=== PATIENT | male | born 1960 | race Caucasian/White ===

== ENCOUNTER 2021-04-27 11:07 | Observation (INO) ==
[2021-04-27 11:35] LABS: ABS Eosinophils 0.1 10^3/ul (0-0.6); ABS Lymphocytes 1.1 10^3/ul (1.0-4.8); ABS Monocytes 0.6 10^3/ul (0-0.8); ABS Neutrophils 7.4 10^3/ul (1.5-7.7); Eosinophil % 0.9 %; Hematocrit 49 % (42-52); Hemoglobin 17.3 g/dL (14.0-18.0); Mean Corpuscular HGB Conc 35 g/dL (31-36); Mean Corpuscular Hemoglobin 36 pg (27-31); Mean Corpuscular Volume 101 fL (80-94); Mean Platelet Volume 9.6 fL (7.4-10.4); Platelet Count 183 10^3/uL (150-450); Red Blood Count 4.84 10^6 /uL (4.18-5.48); Red Cell Distribution Width 13 % (10-15); White Blood Count 9.2 10^3/uL (3.5-10.8)
[2021-04-27 11:53] LABS: INR 1.03 (0.86-1.15)
[2021-04-27 12:06] LABS: Albumin 4.4 g/dL (3.2-5.2); Albumin/Globulin Ratio 2.1 (1-3); Calcium 9.6 mg/dL (8.6-10.3); Globulin 2.1 g/dL (2-4); Potassium 4.2 mmol/L (3.5-5.0); Total Bilirubin 0.8 mg/dL (0.2-1.0); Total Protein 6.5 g/dL (6.4-8.9); eGFR CKD-EPI 88.3 (>60)
[2021-04-27 13:11] LABS: High Sensitivity Troponin 1 Hr 12 pg/mL (<20)
[2021-04-27] MEDS ORDERED: Al Hydrox/Mg Hydrox/Simet LIQ 30 ML UDC PO PRN (14:49)
[2021-04-27] MEDS ORDERED: Dextrose 50% Syringe 50 ml 25 GM/50 ML SYRINGE IV PUSH PRN (15:03)
[2021-04-27] MEDS: Enoxaparin 40 MG/0.4 ML SYR SUBCUT SCH (16:50)
[2021-04-27] MEDS: Nicotine PATCH 7 MG/24 HR PATCH TRANSDERM SCH (16:52)
[2021-04-27] MEDS: NS 0.9% 1000 ml BAG 1,000 ML IV SCH ×3 (17:56→19:33)
[2021-04-28] MEDS: NS 0.9% 1000 ml BAG 1,000 ML IV SCH (03:54)
[2021-04-28 05:45] LABS: Calcium 8.5 mg/dL (8.6-10.3); Potassium 4.2 mmol/L (3.5-5.0); eGFR CKD-EPI 102.5 (>60)
[2021-04-28 06:11] LABS: Folate 14.49 ng/mL (5.90-24.80)
[2021-04-28] MEDS ORDERED: Aminophylline 25 MG/ML VIAL ONE (08:55)
[2021-04-28] MEDS ORDERED: Regadenoson 0.4 MG/5 ML SYRINGE ONE (08:55)
[2021-04-28] MEDS ORDERED: Aspirin EC 81 mg TAB.EC (enteric coated) PO SCH (09:00)
[2021-04-28] MEDS: Nicotine PATCH 7 MG/24 HR PATCH TRANSDERM SCH (11:28)
[2021-04-28 11:51] LABS: HDL Cholesterol 24.6 mg/dL
[2021-04-28 14:13] LABS: Urine Appearance Clear; Urine Bilirubin Negative (Negative); Urine Blood Negative (Negative); Urine Color Yellow; Urine Glucose 3+(>=500 mg/dL) (Negative); Urine Ketones 1+ (Negative); Urine Nitrite Negative (Negative); Urine Protein 1+(30 mg/dL) (Negative); Urine Specific Gravity 1.017 (1.002-1.030); Urine Urobilinogen Negative (Negative)
[2021-04-28 14:42] LABS: Urine Bacteria Absent (Absent); Urine Red Blood Cell Trace(0-2/hpf) (Absent); Urine White Blood Cell Trace(0-5/hpf) (Absent)
[2021-04-28] MEDS: Enoxaparin 40 MG/0.4 ML SYR SUBCUT SCH (15:21)
[2021-04-28 15:30] VITALS: BP 134/75
== END 2021-04-28 17:00 | disposition home or self-care (01) ==
LOC: EDHOLD 11:07 → ED 11:07 → SUATTDRO 14:49 → MEDTELE 15:40
PROVIDERS: ADMIT Internal Medicine; ATTEND Student in an Organized Health Care Education/Training Program

== ENCOUNTER 2021-07-05 05:02 | Inpatient (IN) ==
[2021-07-05] MEDS ORDERED: Iohexol 350 (CONTRAST) 200 ML MDV IV ONE (05:03)
[2021-07-05] MEDS ORDERED: Amiodarone 360 MG IVPREMIX 360 MG/200 ML BAG IV ONE ×2 (05:22→11:05)
[2021-07-05] MEDS ORDERED: Propofol 10 mg/ml 100 ML BTL 100 ML IV ONE (05:23)
[2021-07-05 05:50] LABS: PCO2 Arterial 47 mmHg (35-45); PO2 Arterial 387 mmHg (80-100)
[2021-07-05] MEDS ORDERED: Magnesium Sulfate IV 1GM/100ML 1 GM/100 ML BAG IV ONE (06:07)
[2021-07-05 06:42] LABS: ABS Basophils 0.1 10^3/ul (0-0.2); ABS Lymphocytes 0.4 10^3/ul (1.0-4.8); ABS Monocytes 0.9 10^3/ul (0-0.8); ABS Neutrophils 14.5 10^3/ul (1.5-7.7); Eosinophil % 0.2 %; Hematocrit 55 % (42-52); Hemoglobin 18.7 g/dL (14.0-18.0); Lymphocyte % 2.8 %; Mean Corpuscular HGB Conc 34 g/dL (31-36); Mean Corpuscular Hemoglobin 36 pg (27-31); Mean Corpuscular Volume 105 fL (80-94); Mean Platelet Volume 9.4 fL (7.4-10.4); Platelet Count 178 10^3/uL (150-450); Red Blood Count 5.24 10^6 /uL (4.18-5.48); Red Cell Distribution Width 14 % (10-15); White Blood Count 15.9 10^3/uL (3.5-10.8)
[2021-07-05 06:42] LABS: Urine Appearance Clear; Urine Bilirubin Negative (Negative); Urine Blood 3+ (Negative); Urine Color Yellow; Urine Glucose 3+(>=500 mg/dL) (Negative); Urine Ketones Negative (Negative); Urine Nitrite Negative (Negative); Urine Protein 2+(100 mg/dL) (Negative); Urine Specific Gravity 1.016 (1.002-1.030); Urine Urobilinogen Negative (Negative)
[2021-07-05] MEDS ORDERED: Lactated Ringers 1000 ml BAG 1,000 ML IV ONE (06:46)
[2021-07-05 06:54] LABS: Urine Bacteria Absent (Absent); Urine Red Blood Cell 2+(6-10/hpf) (Absent); Urine Squamous Epithelial Cell Present (Absent); Urine White Blood Cell Trace(0-5/hpf) (Absent)
[2021-07-05 07:00] LABS: Activated Partial Thrombo Time 37.8 seconds (26.0-38.0)
[2021-07-05 07:05] LABS: High Sens Troponin Baseline 354 pg/mL (<20)
[2021-07-05] MEDS ORDERED: fentaNYL 100 mcg/2 ml 50 MCG/ML VIAL IV SLOW PU ONE (07:10)
[2021-07-05 07:17] LABS: ALT 251 U/L (7-52); Albumin 4.6 g/dL (3.2-5.2); Albumin/Globulin Ratio 1.9 (1-3); Alkaline Phosphatase 104 U/L (35-149); Blood Urea Nitrogen 24 mg/dL (6-24); CO2 Carbon Dioxide 26 mmol/L (22-32); Chloride 103 mmol/L (101-111); Globulin 2.4 g/dL (2-4); Glucose 204 mg/dL (70-100); Magnesium 2.4 mg/dL (1.9-2.7); Sodium 139 mmol/L (135-145); eGFR CKD-EPI 65.3 (>60)
[2021-07-05] MEDS ORDERED: Iohexol 350 (CONTRAST) 500 ML MDV IV ONE (07:32)
[2021-07-05 08:12] LABS: High Sensitivity Troponin 1 Hr 648 pg/mL (<20)
[2021-07-05] MEDS: fentaNYL INFUSION 50 mcg/mL VL 2,500 MCG/50 ML VIAL IV SCH (08:17)
[2021-07-05] MEDS ORDERED: Propofol 10 mg/ml 100 ML BTL 100 ML ONE (08:46)
[2021-07-05] MEDS ORDERED: Magnesium Sulfate 2 gm BAG 2 GM/50 ML BAG IVPB ONE (09:00)
[2021-07-05] MEDS ORDERED: nitroGLYCERIN DRIP 25,000 MCG/250 ML BTL ONE (09:51)
[2021-07-05] MEDS ORDERED: Heparin 2 UNITS/ML 1000 mls 3,000 ML IV ONE (09:51)
[2021-07-05] MEDS ORDERED: Heparin 1,000 UNIT/ML 10 ml (10,000 UNITS) CATHLAB/DIALYSIS ONE (09:51)
[2021-07-05] MEDS ORDERED: Midazolam 5 mg/5 ml VIAL 1 mg/ml 5 ml VIAL (5 mg) ONE (09:51)
[2021-07-05] MEDS ORDERED: niCARdipine 0.1MG/ML IVPREMIX 20 MG/200 ML BAG IV ONE (09:51)
[2021-07-05] MEDS ORDERED: fentaNYL 100 mcg/2 ml 50 MCG/ML VIAL ONE (09:51)
[2021-07-05] MEDS ORDERED: Lidocaine 1% MPF 5 ML VIAL ONE (09:52)
[2021-07-05] MEDS ORDERED: Heparin - STEMI 5,000 UNITS/ML 1 ml VIAL IV ONE (09:54)
[2021-07-05] MEDS ORDERED: Norepinephrine 16MCG/ML BAG NS 4,000 MCG/250 ML BAG IV ONE (09:58)
[2021-07-05] MEDS ORDERED: Heparin DRIP 25,000 UNITS BAG 25,000 UNITS/500 ML BAG IV SCH (10:00)
[2021-07-05] MEDS ORDERED: Heparin 5000 UNITS/ML 1 mL VIAL IV SCH (10:00)
[2021-07-05 10:24] LABS: Anion Gap 10 mmol/L (2-11)
[2021-07-05 10:28] LABS: Calcium 9.6 mg/dL (8.6-10.3)
[2021-07-05 13:38] LABS: ABS Basophils 0.1 10^3/ul (0-0.2); ABS Lymphocytes 0.8 10^3/ul (1.0-4.8); ABS Monocytes 1.2 10^3/ul (0-0.8); ABS Neutrophils 13.4 10^3/ul (1.5-7.7); Eosinophil % 0.1 %; Hematocrit 51 % (42-52); Hemoglobin 17.2 g/dL (14.0-18.0); Lymphocyte % 5.3 %; Mean Corpuscular HGB Conc 34 g/dL (31-36); Mean Corpuscular Hemoglobin 35 pg (27-31); Mean Corpuscular Volume 104 fL (80-94); Nucleated Red Blood Cells % 0.3; Red Blood Count 4.87 10^6 /uL (4.18-5.48); Red Cell Distribution Width 14 % (10-15); White Blood Count 15.4 10^3/uL (3.5-10.8)
[2021-07-05 15:02] LABS: Potassium Redraw 4.4 mmol/L (3.5-5.0)
[2021-07-05] MEDS: Amiodarone 360 MG IVPREMIX 360 MG/200 ML BAG IV SCH (15:07)
[2021-07-05] MEDS: Propofol 10 mg/ml 100 ML BTL 100 ML IV SCH ×4 (15:08→23:46)
[2021-07-05 15:21] LABS: Platelet Count Platelets clumped. 10^3/uL (150-450)
[2021-07-05 16:48] LABS: TSH Ultra Thyroid Stim Horm 1.58 mcIU/mL (0.34-5.60)
[2021-07-05 18:59] LABS: ABS Lymphocytes 0.6 10^3/ul (1.0-4.8); ABS Monocytes 1.3 10^3/ul (0-0.8); ABS Neutrophils 12.3 10^3/ul (1.5-7.7); Hematocrit 54 % (42-52); Hemoglobin 18.3 g/dL (14.0-18.0); Lymphocyte % 4.3 %; Mean Corpuscular HGB Conc 34 g/dL (31-36); Mean Corpuscular Hemoglobin 35 pg (27-31); Mean Corpuscular Volume 103 fL (80-94); Mean Platelet Volume 9.6 fL (7.4-10.4); Nucleated Red Blood Cells % 0.2; Platelet Count 177 10^3/uL (150-450); Red Blood Count 5.23 10^6 /uL (4.18-5.48); Red Cell Distribution Width 14 % (10-15); White Blood Count 14.2 10^3/uL (3.5-10.8)
[2021-07-05 19:09] LABS: Activated Partial Thrombo Time 38.7 seconds (26.0-38.0); INR 1.04 (0.86-1.15)
[2021-07-05 20:14] LABS: Albumin 4.2 g/dL (3.2-5.2); Calcium 9.2 mg/dL (8.6-10.3); Globulin 2.1 g/dL (2-4); Potassium 4.6 mmol/L (3.5-5.0); Total Bilirubin 0.8 mg/dL (0.2-1.0); Total Protein 6.3 g/dL (6.4-8.9)
[2021-07-05] MEDS: Heparin 5000 UNITS/ML 1 mL VIAL SUBCUT SCH (20:56)
[2021-07-05] MEDS: Pantoprazole VIAL 40 MG VIAL IV SCH (20:56)
[2021-07-05] MEDS: Chlorhexidine MOUTHWASH 0.12% 15 ML UDC SWISH SPIT SCH (20:56)
[2021-07-05] MEDS: Thiamine 100 MG/ML 2 ml VIAL 500 MG in NS 0.9% 250 ml 250 ML IV SCH (21:47)
[2021-07-05] MEDS ORDERED: NS 0.9% 250 ml 250 ML ONE (23:44)
[2021-07-06] MEDS ORDERED: Meperidine 50 mg/ml SYRINGE 1 ml IV ONE (00:59)
[2021-07-06] MEDS: Chlorhexidine MOUTHWASH 0.12% 15 ML UDC SWISH SPIT SCH ×6 (01:17→22:41)
[2021-07-06] MEDS: Amiodarone 360 MG IVPREMIX 360 MG/200 ML BAG IV SCH ×2 (01:59→17:38)
[2021-07-06] MEDS: Propofol 10 mg/ml 100 ML BTL 100 ML IV SCH ×8 (03:11→22:38)
[2021-07-06] MEDS ORDERED: Succinylcholine 200 mg VIAL 20 mg/ml 10 ml VIAL (200 mg) ONE (05:02)
[2021-07-06] MEDS ORDERED: Propofol 10 MG/ML 20 ML BTL ONE (05:02)
[2021-07-06] MEDS ORDERED: Etomidate 40 mg/20 ml (2 MG/ML) 20 ml VIAL (40 mg) ONE (05:02)
[2021-07-06] MEDS ORDERED: NS 0.9% 250 ml 250 ML ONE (05:32)
[2021-07-06] MEDS: Thiamine 100 MG/ML 2 ml VIAL 500 MG in NS 0.9% 250 ml 250 ML IV SCH ×3 (05:32→22:13)
[2021-07-06] MEDS: Heparin 5000 UNITS/ML 1 mL VIAL SUBCUT SCH ×3 (05:33→22:41)
[2021-07-06 06:59] LABS: ABS Basophils 0.1 10^3/ul (0-0.2); ABS Lymphocytes 0.8 10^3/ul (1.0-4.8); ABS Neutrophils 9.7 10^3/ul (1.5-7.7); Eosinophil % 0.4 %; Hematocrit 53 % (42-52); Hemoglobin 17.6 g/dL (14.0-18.0); Mean Corpuscular HGB Conc 34 g/dL (31-36); Mean Corpuscular Hemoglobin 35 pg (27-31); Mean Corpuscular Volume 105 fL (80-94); Mean Platelet Volume 10.1 fL (7.4-10.4); Platelet Count 160 10^3/uL (150-450); Red Blood Count 4.99 10^6 /uL (4.18-5.48); Red Cell Distribution Width 14 % (10-15); White Blood Count 11.6 10^3/uL (3.5-10.8)
[2021-07-06 09:26] LABS: ALT 154 U/L (7-52); Albumin/Globulin Ratio 2.1 (1-3); Alkaline Phosphatase 80 U/L (35-149); Blood Urea Nitrogen 25 mg/dL (6-24); CO2 Carbon Dioxide 26 mmol/L (22-32); Chloride 104 mmol/L (101-111); Globulin 1.9 g/dL (2-4); Glucose 103 mg/dL (70-100); Sodium 138 mmol/L (135-145); Total Protein 5.9 g/dL (6.4-8.9); eGFR CKD-EPI 105.5 (>60)
[2021-07-06 09:36] LABS: Anion Gap 8 mmol/L (2-11)
[2021-07-06 14:30] LABS: Potassium Redraw 4.1 mmol/L (3.5-5.0)
[2021-07-06] MEDS: Acetaminophen IV 1 GM/100ML 100 ML IV PRN (17:01)
[2021-07-06] MEDS ORDERED: Lorazepam PYXIS KEY PRN (18:16)
[2021-07-06] MEDS: LORazepam 2 mg VIAL 1 ml IV PUSH PRN (20:01)
[2021-07-06] MEDS: Pantoprazole VIAL 40 MG VIAL IV SCH (20:20)
[2021-07-07] MEDS: LORazepam 2 mg VIAL 1 ml IV PUSH PRN ×3 (00:16→13:36)
[2021-07-07] MEDS: Propofol 10 mg/ml 100 ML BTL 100 ML IV SCH ×6 (02:11→22:11)
[2021-07-07] MEDS: Chlorhexidine MOUTHWASH 0.12% 15 ML UDC SWISH SPIT SCH ×6 (03:28→22:59)
[2021-07-07 05:11] LABS: ABS Basophils 0.1 10^3/ul (0-0.2); ABS Eosinophils 0.1 10^3/ul (0-0.6); ABS Lymphocytes 0.9 10^3/ul (1.0-4.8); ABS Neutrophils 7.5 10^3/ul (1.5-7.7); Eosinophil % 0.6 %; Hematocrit 47 % (42-52); Hemoglobin 16.2 g/dL (14.0-18.0); Mean Corpuscular HGB Conc 34 g/dL (31-36); Mean Corpuscular Hemoglobin 36 pg (27-31); Mean Corpuscular Volume 104 fL (80-94); Mean Platelet Volume 9.3 fL (7.4-10.4); Platelet Count 129 10^3/uL (150-450); Red Blood Count 4.54 10^6 /uL (4.18-5.48); Red Cell Distribution Width 14 % (10-15); White Blood Count 9.5 10^3/uL (3.5-10.8)
[2021-07-07] MEDS: Thiamine 100 MG/ML 2 ml VIAL 500 MG in NS 0.9% 250 ml 250 ML IV SCH ×3 (05:42→20:36)
[2021-07-07 05:43] LABS: Calcium 8.5 mg/dL (8.6-10.3); Magnesium 2.1 mg/dL (1.9-2.7); Phosphorus 3.4 mg/dL (2.5-5.0); eGFR CKD-EPI 100.9 (>60)
[2021-07-07] MEDS: Heparin 5000 UNITS/ML 1 mL VIAL SUBCUT SCH ×3 (05:43→23:00)
[2021-07-07] MEDS: Multivitamins ADULT w/MIN LIQ 15 ML UDC PO SCH ×2 (08:47)
[2021-07-07 09:43] LABS: Albumin 3.7 g/dL (3.2-5.2); Albumin/Globulin Ratio 2.1 (1-3); Direct Bilirubin 0.1 mg/dL (0.03-0.18); Globulin 1.8 g/dL (2-4); Indirect Bilirubin 0.6 mg/dL (0.3-1.0); Total Bilirubin 0.7 mg/dL (0.2-1.0); Total Protein 5.5 g/dL (6.4-8.9)
[2021-07-07 10:33] LABS: Ferritin 225.6 ng/mL (24-336)
[2021-07-07] MEDS: Amiodarone 400 mg TAB PO SCH ×2 (10:35→20:36)
[2021-07-07] MEDS: Pantoprazole VIAL 40 MG VIAL IV SCH (20:36)
[2021-07-08] MEDS: Thiamine 100 MG/ML 2 ml VIAL 500 MG in NS 0.9% 250 ml 250 ML IV SCH ×3 (05:00→20:52)
[2021-07-08 05:02] LABS: ABS Eosinophils 0.1 10^3/ul (0-0.6); ABS Lymphocytes 0.8 10^3/ul (1.0-4.8); ABS Neutrophils 8.2 10^3/ul (1.5-7.7); Eosinophil % 0.5 %; Hematocrit 44 % (42-52); Hemoglobin 15.2 g/dL (14.0-18.0); Lymphocyte % 7.8 %; Mean Corpuscular HGB Conc 35 g/dL (31-36); Mean Corpuscular Hemoglobin 36 pg (27-31); Mean Corpuscular Volume 104 fL (80-94); Mean Platelet Volume 9.2 fL (7.4-10.4); Platelet Count 133 10^3/uL (150-450); Red Blood Count 4.22 10^6 /uL (4.18-5.48); Red Cell Distribution Width 14 % (10-15); White Blood Count 10.1 10^3/uL (3.5-10.8)
[2021-07-08] MEDS: Chlorhexidine MOUTHWASH 0.12% 15 ML UDC SWISH SPIT SCH ×6 (05:02→20:40)
[2021-07-08] MEDS: Heparin 5000 UNITS/ML 1 mL VIAL SUBCUT SCH ×3 (05:07→20:39)
[2021-07-08 05:47] LABS: Calcium 8.8 mg/dL (8.6-10.3); Magnesium 1.9 mg/dL (1.9-2.7); Potassium 3.7 mmol/L (3.5-5.0); eGFR CKD-EPI 102.5 (>60)
[2021-07-08] MEDS: Amiodarone 400 mg TAB PO SCH ×2 (07:42→20:40)
[2021-07-08] MEDS: Multivitamins ADULT w/MIN LIQ 15 ML UDC PO SCH (07:43)
[2021-07-08 08:38] LABS: Folate 6.65 ng/mL (5.90-24.80)
[2021-07-08] MEDS ORDERED: Potassium Chlor 20 meq TAB.ER PO ONE (09:20)
[2021-07-08] MEDS: Propofol 10 mg/ml 100 ML BTL 100 ML IV SCH ×2 (09:32→14:09)
[2021-07-08] MEDS ORDERED: Potassium Chloride LIQUID 20 MEQ/15 ML LIQUID PO ONE (10:01)
[2021-07-08] MEDS: fentaNYL INFUSION 50 mcg/mL VL 2,500 MCG/50 ML VIAL IV SCH (12:35)
[2021-07-08] MEDS: Cyanocobalamin INJ 1,000 MCG/ML VIAL 1 ML VIAL IM SCH (17:00)
[2021-07-08] MEDS ORDERED: Lorazepam PYXIS KEY PRN (19:21)
[2021-07-08] MEDS: LORazepam 2 mg VIAL 1 ml IV PUSH PRN ×2 (20:08→22:18)
[2021-07-08] MEDS: Pantoprazole VIAL 40 MG VIAL IV SCH (20:39)
[2021-07-08] MEDS: fentaNYL 100 mcg/2 ml 50 MCG/ML VIAL IV SLOW PU PRN (23:59)
[2021-07-09] MEDS: Chlorhexidine MOUTHWASH 0.12% 15 ML UDC SWISH SPIT SCH ×5 (01:07→19:14)
[2021-07-09] MEDS: Acetaminophen IV 1 GM/100ML 100 ML IV PRN ×2 (02:52→13:43)
[2021-07-09] MEDS: LORazepam 2 mg VIAL 1 ml IV PUSH PRN ×2 (04:34)
[2021-07-09] MEDS: fentaNYL 100 mcg/2 ml 50 MCG/ML VIAL IV SLOW PU PRN ×2 (04:36→07:48)
[2021-07-09 04:44] LABS: ABS Lymphocytes 0.7 10^3/ul (1.0-4.8); ABS Monocytes 1.2 10^3/ul (0-0.8); ABS Neutrophils 8.9 10^3/ul (1.5-7.7); Eosinophil % 0.4 %; Hematocrit 43 % (42-52); Hemoglobin 14.8 g/dL (14.0-18.0); Lymphocyte % 6.6 %; Mean Corpuscular HGB Conc 35 g/dL (31-36); Mean Corpuscular Hemoglobin 36 pg (27-31); Mean Corpuscular Volume 104 fL (80-94); Mean Platelet Volume 9.7 fL (7.4-10.4); Platelet Count 135 10^3/uL (150-450); Red Blood Count 4.14 10^6 /uL (4.18-5.48); Red Cell Distribution Width 14 % (10-15); White Blood Count 10.9 10^3/uL (3.5-10.8)
[2021-07-09] MEDS: Thiamine 100 MG/ML 2 ml VIAL 500 MG in NS 0.9% 250 ml 250 ML IV SCH ×3 (04:45→21:17)
[2021-07-09 05:28] LABS: Albumin 3.3 g/dL (3.2-5.2); Albumin/Globulin Ratio 1.7 (1-3); Calcium 8.6 mg/dL (8.6-10.3); Direct Bilirubin 0.3 mg/dL (0.03-0.18); Globulin 1.9 g/dL (2-4); Indirect Bilirubin 0.9 mg/dL (0.3-1.0); Magnesium 1.8 mg/dL (1.9-2.7); Potassium 3.5 mmol/L (3.5-5.0); Total Bilirubin 1.2 mg/dL (0.2-1.0); Total Protein 5.2 g/dL (6.4-8.9); eGFR CKD-EPI 102.9 (>60)
[2021-07-09] MEDS ORDERED: Magnesium Sulfate 2 gm BAG 2 GM/50 ML BAG IVPB ONE (05:51)
[2021-07-09] MEDS ORDERED: Potassium Chloride LIQUID 20 MEQ/15 ML LIQUID PO ONE (05:51)
[2021-07-09] MEDS ORDERED: Furosemide 40 mg/4 ml IV VIAL IV SLOW PU ONE (05:51)
[2021-07-09] MEDS: Heparin 5000 UNITS/ML 1 mL VIAL SUBCUT SCH ×3 (06:24→21:17)
[2021-07-09] MEDS: Multivitamins ADULT w/MIN LIQ 15 ML UDC PO SCH (09:04)
[2021-07-09] MEDS: Cyanocobalamin INJ 1,000 MCG/ML VIAL 1 ML VIAL IM SCH (09:04)
[2021-07-09] MEDS: Amiodarone 400 mg TAB PO SCH ×2 (09:05→21:49)
[2021-07-09] MEDS ORDERED: EPINEPHrine,Rac 2.25% NEB.SOL 0.5 ML INH ONE (10:53)
[2021-07-09] MEDS ORDERED: EPINEPHrine,Rac 2.25% NEB.SOL 0.5 ML ONE (10:53)
[2021-07-09] MEDS: Dexamethasone IV 4 MG/ML VIAL 1 ml VIAL IV SLOW PU SCH ×2 (11:28→21:17)
[2021-07-09] MEDS: Pantoprazole VIAL 40 MG VIAL IV SCH (19:53)
[2021-07-09] MEDS ORDERED: Amiodarone 360 MG IVPREMIX 360 MG/200 ML BAG IV SCH (20:05)
[2021-07-09] MEDS ORDERED: NS 0.9% 250 ml 250 ML ONE (21:09)
[2021-07-10] MEDS: Dexamethasone IV 4 MG/ML VIAL 1 ml VIAL IV SLOW PU SCH ×2 (05:22→20:54)
[2021-07-10] MEDS: Thiamine 100 MG/ML 2 ml VIAL 500 MG in NS 0.9% 250 ml 250 ML IV SCH ×2 (05:22→12:54)
[2021-07-10] MEDS: Heparin 5000 UNITS/ML 1 mL VIAL SUBCUT SCH ×3 (05:22→20:54)
[2021-07-10 05:34] LABS: ABS Lymphocytes 0.4 10^3/ul (1.0-4.8); ABS Monocytes 0.4 10^3/ul (0-0.8); ABS Neutrophils 7.5 10^3/ul (1.5-7.7); Hematocrit 46 % (42-52); Hemoglobin 15.8 g/dL (14.0-18.0); Lymphocyte % 4.6 %; Mean Corpuscular HGB Conc 34 g/dL (31-36); Mean Corpuscular Hemoglobin 35 pg (27-31); Mean Corpuscular Volume 102 fL (80-94); Mean Platelet Volume 9.4 fL (7.4-10.4); Platelet Count 151 10^3/uL (150-450); Red Cell Distribution Width 13 % (10-15); White Blood Count 8.3 10^3/uL (3.5-10.8)
[2021-07-10 05:59] LABS: Calcium 8.7 mg/dL (8.6-10.3); eGFR CKD-EPI 104.6 (>60)
[2021-07-10] MEDS: Amiodarone 400 mg TAB PO SCH ×2 (10:13→20:53)
[2021-07-10] MEDS: Multivitamins ADULT w/MIN LIQ 15 ML UDC PO SCH (10:13)
[2021-07-10] MEDS: Cyanocobalamin INJ 1,000 MCG/ML VIAL 1 ML VIAL IM SCH (11:10)
[2021-07-10] MEDS: Pantoprazole VIAL 40 MG VIAL IV SCH (20:53)
[2021-07-11] MEDS: Heparin 5000 UNITS/ML 1 mL VIAL SUBCUT SCH ×3 (05:11→21:06)
[2021-07-11 05:55] LABS: Hematocrit 45 % (42-52); Hemoglobin 15.5 g/dL (14.0-18.0); Mean Corpuscular HGB Conc 35 g/dL (31-36); Mean Corpuscular Hemoglobin 36 pg (27-31); Mean Corpuscular Volume 103 fL (80-94); Mean Platelet Volume 9.6 fL (7.4-10.4); Platelet Count 167 10^3/uL (150-450); Red Blood Count 4.37 10^6 /uL (4.18-5.48); Red Cell Distribution Width 13 % (10-15); White Blood Count 10.5 10^3/uL (3.5-10.8)
[2021-07-11 06:35] LABS: Magnesium 2.1 mg/dL (1.9-2.7); Potassium 4.3 mmol/L (3.5-5.0); eGFR CKD-EPI 99.8 (>60)
[2021-07-11] MEDS: Multivitamins ADULT w/MIN LIQ 15 ML UDC PO SCH (07:57)
[2021-07-11] MEDS: Amiodarone 400 mg TAB PO SCH ×2 (07:57→21:05)
[2021-07-11] MEDS: Cyanocobalamin INJ 1,000 MCG/ML VIAL 1 ML VIAL IM SCH (07:58)
[2021-07-11] MEDS: Dexamethasone IV 4 MG/ML VIAL 1 ml VIAL IV SLOW PU SCH (07:58)
[2021-07-11] MEDS ORDERED: Dextrose 50% Syringe 50 ml 25 GM/50 ML SYRINGE IV PUSH PRN (12:31)
[2021-07-12 05:17] LABS: ABS Lymphocytes 0.8 10^3/ul (1.0-4.8); Eosinophil % 0.1 %; Hematocrit 42 % (42-52); Hemoglobin 14.4 g/dL (14.0-18.0); Lymphocyte % 10.3 %; Mean Corpuscular HGB Conc 35 g/dL (31-36); Mean Corpuscular Hemoglobin 36 pg (27-31); Mean Corpuscular Volume 103 fL (80-94); Mean Platelet Volume 9.4 fL (7.4-10.4); Nucleated Red Blood Cells % 0.1; Platelet Count 168 10^3/uL (150-450); Red Blood Count 4.06 10^6 /uL (4.18-5.48); Red Cell Distribution Width 13 % (10-15); White Blood Count 7.9 10^3/uL (3.5-10.8)
[2021-07-12] MEDS: Heparin 5000 UNITS/ML 1 mL VIAL SUBCUT SCH (05:20)
[2021-07-12 05:54] LABS: Calcium 8.6 mg/dL (8.6-10.3); Magnesium 1.9 mg/dL (1.9-2.7); Potassium 3.8 mmol/L (3.5-5.0); eGFR CKD-EPI 104.6 (>60)
[2021-07-12] MEDS: Amiodarone 400 mg TAB PO SCH ×2 (09:06→20:29)
[2021-07-12] MEDS: Cyanocobalamin INJ 1,000 MCG/ML VIAL 1 ML VIAL IM SCH (09:06)
[2021-07-12] MEDS ORDERED: Potassium Chlor 20 meq TAB.ER PO ONE (09:51)
[2021-07-12] MEDS ORDERED: Magnesium Sulfate 2 gm BAG 2 GM/50 ML BAG IV ONE (10:00)
[2021-07-12] MEDS ORDERED: Magnesium Sulfate 1 GM IV 1 GM/100 ML BAG IV ONE ×2 (10:00→11:00)
[2021-07-12] MEDS: Multivitamins ADULT w/MIN LIQ 15 ML UDC PO SCH (13:54)
[2021-07-12] MEDS: Enoxaparin 40 MG/0.4 ML SYR SUBCUT SCH (20:29)
[2021-07-13 07:10] LABS: Calcium 8.2 mg/dL (8.6-10.3); eGFR CKD-EPI 99.5 (>60)
[2021-07-13] MEDS: Multivitamins ADULT w/MIN LIQ 15 ML UDC PO SCH (09:46)
[2021-07-13] MEDS: Amiodarone 400 mg TAB PO SCH ×2 (09:49→22:25)
[2021-07-13] MEDS: Cyanocobalamin INJ 1,000 MCG/ML VIAL 1 ML VIAL IM SCH (09:49)
[2021-07-13] MEDS ORDERED: Benzocaine/Menthol LOZ PO PRN (14:47)
[2021-07-13] MEDS ORDERED: Al Hydrox/Mg Hydrox/Simet LIQ 30 ML UDC PO PRN (15:47)
[2021-07-13 17:22] LABS: High Sensitivity Troponin 1 Hr 25 pg/mL (<20)
[2021-07-13] MEDS: Enoxaparin 40 MG/0.4 ML SYR SUBCUT SCH (22:25)
[2021-07-14 06:27] LABS: Calcium 8.7 mg/dL (8.6-10.3); Magnesium 2.2 mg/dL (1.9-2.7); Potassium 4.1 mmol/L (3.5-5.0); eGFR CKD-EPI 98.4 (>60)
[2021-07-14] MEDS: Cyanocobalamin INJ 1,000 MCG/ML VIAL 1 ML VIAL IM SCH (10:00)
[2021-07-14] MEDS: Amiodarone 400 mg TAB PO SCH (10:01)
[2021-07-14] MEDS: Multivitamins ADULT w/MIN LIQ 15 ML UDC PO SCH (12:36)
[2021-07-14] MEDS: NFT: Empaglifozin 10 mg TAB (NF) PO SCH (12:38)
[2021-07-14] MEDS: Enoxaparin 40 MG/0.4 ML SYR SUBCUT SCH (19:53)
[2021-07-15 07:37] VITALS: BP 107/64
[2021-07-15] MEDS ORDERED: Aspirin EC 81 mg TAB.EC (enteric coated) PO SCH (09:00)
[2021-07-15] MEDS: Multivitamins ADULT w/MIN LIQ 15 ML UDC PO SCH (09:27)
[2021-07-15] MEDS: NFT: Empaglifozin 10 mg TAB (NF) PO SCH (09:28)
[2021-07-15] MEDS ORDERED: Nicotine PATCH 7 MG/24 HR PATCH TRANSDERM SCH (12:00)
== END 2021-07-15 13:30 | disposition home health service (06) | DRG 182 ==
LOC: ED 05:02 → ICU 12:55 → SUATTDRO 12:55 → ICU 14:33 → MEDTELE 07-11 14:34
PROVIDERS: ADMIT Internal Medicine; ATTEND Internal Medicine

== ENCOUNTER 2023-08-24 07:35 | Observation (INO) ==
[~2023-08-24 07:35] MED LIST: Naloxone 0.4 mg VIAL 0.4 mg/ml 1 ml VIAL IV PRN; Ondansetron 4 mg VIAL 2 MG/ML 2 ml VIAL IV PRN
[2023-08-24] MEDS ORDERED: Chlorhexidine MOUTHWASH 0.12% 15 ML UDC ONE ×2 (07:42→07:50)
[2023-08-24] MEDS ORDERED: ceFAZolin 2 GM PREMIX 2 GM/50 ML BAG ONE (08:09)
[2023-08-24 08:17] LABS: Rapid COVID-19 Molecular Undetected (Undetected)
[2023-08-24] MEDS ORDERED: Rocuronium 50 mg VIAL 10 mg/ml 5 ml VIAL (50 mg) ONE ×3 (08:23→11:49)
[2023-08-24] MEDS ORDERED: fentaNYL 100 mcg/2 ml 50 MCG/ML VIAL ONE ×3 (08:23→14:59)
[2023-08-24] MEDS ORDERED: Midazolam 2 mg/2 ml VIAL 1 mg/ml 2 ml VIAL (2 mg) ONE (08:23)
[2023-08-24] MEDS ORDERED: Dexamethasone IV 4 MG/ML VIAL 1 ml VIAL ONE (08:24)
[2023-08-24] MEDS ORDERED: Propofol 10 MG/ML 20 ML BTL ONE (08:24)
[2023-08-24] MEDS ORDERED: Ondansetron 4 mg VIAL 2 MG/ML 2 ml VIAL ONE (08:24)
[2023-08-24] MEDS ORDERED: Thrombin 5,000 UNITS(BOVINE) for Ultrasound Guided Pseudoaneursym ONE (09:06)
[2023-08-24] MEDS ORDERED: ceFAZolin VIAL VIAL ONE ×2 (09:06→13:43)
[2023-08-24] MEDS ORDERED: Gelfoam Sponge SIZE 100 SPONGE ONE (09:06)
[2023-08-24] MEDS ORDERED: Lidocaine 1% w EPI 1:100,000 MDV 20 ML VIAL ONE (09:06)
[2023-08-24] MEDS ORDERED: HYDROmorphone 0.5 MG/0.5 ML SYRINGE ONE ×3 (10:34→12:58)
[2023-08-24] MEDS ORDERED: Acetaminophen IV 1 GM/100ML 1,000 MG/100 ML BAG IV ONE (10:36)
[2023-08-24] MEDS ORDERED: Dextran 70/Hypromellose Tears Eye Drops 15 ml BTL (for Artificials Tears) BOTH EYES PRN (14:21)
[2023-08-24] MEDS ORDERED: Senna TAB 8.6 mg TAB PO PRN (14:21)
[2023-08-24] MEDS ORDERED: Benzocaine/Menthol LOZ MT PRN (14:21)
[2023-08-24] MEDS ORDERED: Ondansetron 4 mg VIAL 2 MG/ML 2 ml VIAL IV PRN (14:21)
[2023-08-24] MEDS ORDERED: Phenol 1.4% Throat Spray BTL MT PRN (14:21)
[2023-08-24] MEDS ORDERED: Calcium Carb (TUMS) 500 mg CHEW TAB PO PRN (14:21)
[2023-08-24] MEDS ORDERED: Morphine 2 MG/ML SYRINGE IV PRN (14:21)
[2023-08-24] MEDS: fentaNYL 100 mcg/2 ml 50 MCG/ML VIAL IV PRN (15:05)
[2023-08-24] MEDS: Buffered Lidocaine 1% SYRIN 1 ml INTRADERM ONE (15:10)
[2023-08-24] MEDS: Lactated Ringers 1000 ml BAG 1,000 ML IV SCH ×2 (15:10→18:32)
[2023-08-24] MEDS ORDERED: Dextrose 50% Syringe 50 ml 25 GM/50 ML SYRINGE IV PUSH PRN (15:43)
[2023-08-24] MEDS: Insulin GLARGINE 100 un/ml 10 ml VIAL SUBCUT SCH (20:22)
[2023-08-25 06:07] LABS: Hematocrit 38.5 % (38-53); Hemoglobin 13.2 g/dL (13.2-16.3)
[2023-08-25 10:35] VITALS: BP 120/78
== END 2023-08-25 10:39 | disposition home or self-care (01) ==
LOC: SSU 07:35 → OR 07:35
PROVIDERS: ADMIT Physician Assistant; ATTEND Neurological Surgery